=== PATIENT | male | born 1985 | race Caucasian/White ===

== ENCOUNTER → 2019-07-15 09:02 | Outpatient (BNVA) | payer OTHER, SELFPAY | PROVIDERS: Family Provider Nurse Practitioner Family; PCP Nurse Practitioner Family; Visit Provider Nurse Practitioner Family | DX: M25.562 Pain in left knee (principal); M79.89 Other specified soft tissue disorders | CPT/HCPCS: 73562 ==

== ENCOUNTER → 2019-08-15 10:42 | Outpatient (BNVA) | payer OTHER, SELFPAY | PROVIDERS: Family Provider Nurse Practitioner Family; PCP Nurse Practitioner Family; Visit Provider Family Medicine | DX: J20.8 Acute bronchitis due to other specified organisms (principal) | CPT/HCPCS: 87081; 87880 ==

== ENCOUNTER → 2019-12-06 15:14 | Outpatient (BNVA) | payer OTHER, SELFPAY | PROVIDERS: Family Provider Nurse Practitioner Family; PCP Nurse Practitioner Family; Visit Provider Emergency Medicine | DX: R68.89 Other general symptoms and signs (principal); R11.0 Nausea; K52.9 Noninfective gastroenteritis and colitis, unspecified | CPT/HCPCS: 87400; 87635 ==

== ENCOUNTER → 2020-02-10 13:41 | Outpatient (BNVA) | payer OTHER, SELFPAY | PROVIDERS: Family Provider Nurse Practitioner Family; PCP Nurse Practitioner Family; Visit Provider Nurse Practitioner | DX: Z20.828 Contact with and (suspected) exposure to other viral communicable diseases (principal) | CPT/HCPCS: 87635 ==

== ENCOUNTER → 2020-02-13 15:56 | Outpatient (BNVA) | payer OTHER, SELFPAY | PROVIDERS: Family Provider Nurse Practitioner Family; PCP Nurse Practitioner Family; Visit Provider Family Medicine | DX: R73.03 Prediabetes (principal); I10 Essential (primary) hypertension; Z13.220 Encounter for screening for lipoid disorders; Z13.6 Encounter for screening for cardiovascular disorders | CPT/HCPCS: 80053; 80061; 83036; 83721 ==

== ENCOUNTER → 2020-02-18 14:33 | Outpatient (BNVA) | payer OTHER, SELFPAY | PROVIDERS: Family Provider Nurse Practitioner Family; PCP Nurse Practitioner Family; Visit Provider Emergency Medicine | DX: R19.7 Diarrhea, unspecified (principal); R10.9 Unspecified abdominal pain | CPT/HCPCS: 80053; 82270; 82274; 83690; 85025; 87493; 87506 ==

== ENCOUNTER → 2020-04-12 10:32 | Outpatient (BNVA) | payer OTHER, SELFPAY | PROVIDERS: Family Provider Nurse Practitioner Family; PCP Nurse Practitioner Family; Visit Provider Emergency Medicine | DX: Z20.828 Contact with and (suspected) exposure to other viral communicable diseases (principal); R68.89 Other general symptoms and signs; R11.0 Nausea | CPT/HCPCS: 87400; 87635 ==

== ENCOUNTER → 2020-04-22 18:13 | Outpatient (BNVA) | payer OTHER, SELFPAY | PROVIDERS: Family Provider Nurse Practitioner Family; PCP Nurse Practitioner Family; Visit Provider Nurse Practitioner Family | DX: R68.89 Other general symptoms and signs (principal) | CPT/HCPCS: 87635 ==

== ENCOUNTER → 2020-04-25 15:14 | Outpatient (BNVA) | payer OTHER, SELFPAY | PROVIDERS: Family Provider Nurse Practitioner Family; PCP Nurse Practitioner Family; Visit Provider Emergency Medicine | DX: R68.89 Other general symptoms and signs (principal); Z20.828 Contact with and (suspected) exposure to other viral communicable diseases | CPT/HCPCS: 71046; 87400; 87635 ==

== ENCOUNTER 2020-09-17 10:53 | Outpatient (CLI) | payer OTHER, SELFPAY ==
--- NOTE | 2020-09-17 10:59 | MR_ITS ---
WS: [id number] MRI LEFT KNEE HISTORY: M25.562 - Pain in left knee COMPARISON: Radiograph 07/15/2019 Anterior cruciate ligament: Intact. Posterior cruciate ligament: Intact. Medial collateral ligament: Intact. Posterior lateral corner structures: Intact. Medial menisci: Intact. Normal signal, size and shape. Lateral meniscus: Intact. Normal signal, size and shape. Extensor mechanism: Distal quadriceps tendon and patellar tendons are intact. Fluid and soft tissue: No significant joint effusion. No Zavala's cyst. There is a small fluid collect ion measuring 5 mm associated with the extensor digitorum longus muscle and tendon just superior to t he fibular head. This could be a very tiny ganglion. Osseous and articular structures: Patellofemoral compartment: Normal. Medial compartment: No significant narrowing of the medial compartment with loss of the joint space. Abnormal signal involving the femoral condyle. Variable signal in the subchondral location. Serpigino us line is low-attenuation surrounding the posterior lesion in the femoral condyle which measures 18 mm. Additional 15 mm area of decreased signal towards the anterior femoral condyle. No loose body or fragment. Lateral compartment: No definite lesions are identified within the bone. There is no marrow edema. No fragmentation or loss of joint space. There is an additional irregular shaped lesion in the tibial metaphysis with serpiginous borders ced uring 2.4 x 1.5 cm. MR/MR knee LT wo con* [id number] IMPRESSION: 1. Focal areas of osteonecrosis involving the medial femoral condyle and the t ibial metaphysis. No loose bodies. 2. No joint effusion. 3. Small cystic collection associated with the extensor digitorum longus muscl e and tendon adjacent to the fibular head. This could potentially be a very sma ll ganglion or distended bursa.
== END 2020-09-17 10:54 | disposition home or self-care (01) ==
PROVIDERS: PCP Nurse Practitioner Family; Visit Provider Nurse Practitioner Family
DX: M25.562 Pain in left knee (principal); M87.862 Other osteonecrosis, left tibia
CPT/HCPCS: 73721

== ENCOUNTER → 2020-09-30 09:38 | Outpatient (BNVA) | payer OTHER, SELFPAY | PROVIDERS: PCP Nurse Practitioner Family; Visit Provider Orthopaedic Surgery | DX: M25.562 Pain in left knee (principal); G89.29 Other chronic pain | CPT/HCPCS: 73560; 73565 ==

== ENCOUNTER 2020-10-03 06:00 | Outpatient (RCR) | payer OTHER, SELFPAY | END 2020-10-21 23:59 | disposition home or self-care (01) | LOC: MPT 06:00 | PROVIDERS: PCP Nurse Practitioner Family; Referring Provider Orthopaedic Surgery; Visit Provider Orthopaedic Surgery | DX: M25.562 Pain in left knee (principal) | CPT/HCPCS: 97110; 97140; 97161 ==

== ENCOUNTER → 2020-10-16 14:56 | Outpatient (BNVA) | payer OTHER, SELFPAY | PROVIDERS: PCP Family Medicine; Visit Provider Family Medicine | DX: J02.0 Streptococcal pharyngitis (principal); I10 Essential (primary) hypertension; E11.9 Type 2 diabetes mellitus without complications; M25.562 Pain in left knee; G89.29 Other chronic pain | CPT/HCPCS: 87880 ==

== ENCOUNTER 2020-10-22 06:00 | Outpatient (RCR) | payer OTHER, SELFPAY | END 2020-11-20 23:59 | disposition home or self-care (01) | LOC: MPT 06:00 | PROVIDERS: PCP Family Medicine; Referring Provider Orthopaedic Surgery; Visit Provider Orthopaedic Surgery | DX: M25.562 Pain in left knee (principal) | CPT/HCPCS: 97140 ==

== ENCOUNTER → 2021-06-10 15:45 | Outpatient (BNVA) | payer SELFPAY | PROVIDERS: PCP Family Medicine; Visit Provider Family Medicine | DX: I10 Essential (primary) hypertension (principal); Z13.220 Encounter for screening for lipoid disorders; Z13.6 Encounter for screening for cardiovascular disorders; E11.9 Type 2 diabetes mellitus without complications; K21.9 Gastro-esophageal reflux disease without esophagitis | CPT/HCPCS: 80053; 80061; 83036 ==

== ENCOUNTER 2021-09-19 17:41 | Emergency (ER) | payer SELFPAY ==
[2021-09-19 17:51] VITALS: BP 130/79; PULSE 83; RESP 16; TEMP 36.6; O2SAT 97; BMI 31.2
--- NOTE | 2021-09-19 17:55 | CTR_ITS ---
PROCEDURE INFORMATION: Exam: CT Abdomen And Pelvis With Contrast Exam date and time: 09/19/2021 6:26 PM Age: 35 years old Clinical indication: Abdominal pain; Localized; Right lower quadrant (rlq); Patient HX: C/O rlq pain w nausea x 2-3 weeks; Additional info: Rlq abd pain TECHNIQUE: Imaging protocol: Computed tomography of the abdomen and pelvis with contrast. Radiation optimization: All CT scans at this facility use at least one of these dose optimization techniques: automated exposure control; mA and/or kV adjustment per patient size (includes targeted exams where dose is matched to clinical indication); or iterative reconstruction. Contrast material: OMNI 300; Contrast volume: 95 ml; Contrast route: INTRAVENOUS (IV); COMPARISON: CR XR chest 2V* [id number] 04/25/2020 3:24 PM RADIATION DOSE METRICS: Total DLP (mGy-cm): 1926.14 FINDINGS: Lungs: Lung bases are clear. Liver: There is a diffuse decrease in hepatic parenchymal density, consistent with mild fatty infiltration. There is no focal abnormality within the liver. There is mild enlargement of the liver. Liver measures 20 cm in height. Gallbladder and bile ducts: The gallbladder is normal. Pancreas: The pancreas is normal. Spleen: The spleen is normal. Adrenal glands: The adrenal glands are normal. Kidneys and ureters: The kidneys are normal. There is no evidence of hydronephrosis. There is no stone along the course of either ureter. Stomach and bowel: There is no evidence of colitis/diverticulitis. There is no evidence of intestinal obstruction. Appendix: A normal appendix is identified. Intraperitoneal space: There is no evidence of free intraperitoneal fluid. There is a circumscribed area of haziness in the mid mesentery which also contains some prominent mesenteric lymph nodes. These findings may represent some mesenteric panniculitis or sclerosing mesenteritis. Correlation with clinical findings is suggested. Vasculature: The aorta is normal. Lymph nodes: There is no retroperitoneal adenopathy. Urinary bladder: Unremarkable as visualized. Reproductive: Unremarkable as visualized. Bones/joints: Unremarkable. No acute fracture. Soft tissues: Unremarkable. CT/CT abdomen pelvis w con* [id number] IMPRESSION: 1. Mesenteric panniculitis. 2. Fatty liver and mild hepatomegaly.
--- NOTE | 2021-09-19 18:01 | W.ED.GENADLT ---
HPI - General Adult General: Chief complaint: Abdominal Pain Stated complaint: needs scanning Time Seen by Provider: 09/19/21 17:55 History of Present Illness: Patient is a 35-year-old male with hx of HTN presenting to the emergency room with complaints of right lower quadrant pain x2 to 3 weeks. Patient tells me that he initially bent down and noticed pain in the right lower quadrant. Patient denies any bulges or hernia. Since then, patient reports pain has been constant and worse with p.o. intake. Patient said that he experienced pain about an hour after p.o. intake. Patient reports nausea but denies vomiting fever or chills. Patient report that he had an ultrasound of the groin earlier today that was unremarkable. Patient was told to come to the emergency room for evaluation of right lower quadrant pain. Patient denies any prior abdominal surgery, no history of renal colic, urinary complaints or new penile discharge. Patient denies any chest pain, shortness breath, palpitation, diarrhea, melena/hematochezia. Onset: 3 weeks ago Duration:3 weeks Location:home Severity:mild/moderate Associated symptoms: Reports nausea; Deny chest pain, dyspnea, rash, palpitations or vomiting Review of Systems Const: Denies: fever(s) or chills Eyes: Denies: change in vision ENMT: Denies: mouth pain Card: Denies: chest pain or palpitations Resp: Denies: dyspnea or non-productive cough GI: Reports: abdominal pain (+RLQ abd pain) and nausea; Denies: vomiting or diarrhea : Denies: dysuria Musc: Denies: extremity pain Skin/Breast: Denies: rash or new lesions Neuro: Denies: weakness in extremities Psych: Reports: other (Normal mood) Rachid/Lymph: Denies: easy bruising PFS ED PFSH: Medical History (Updated 09/19/21 @ 19:23 by Raul Webb MD) Essential hypertension Surgical History H/O brain surgery H/O eye surgery S/P carpal tunnel release Family History Other Cancer Dementia Diabetes Hyperlipidemia Hypertension Psychiatric illness Stroke Suicide Social History Quit status (tobacco): not considering quitting Alcohol intake: never History of recent travel: No Physical Exam Const: COMMON NORMALS: alert HENMT: COMMON NORMALS: atraumatic HEAD & SCALP: atraumatic MOUTH: moist mucous membranes not abnormal Eye: COMMON NORMALS: EOMs intact bilaterally and conjunctivae normal CONJUNCTIVA: Yes conjunctivae normal Neck/C-Spine: COMMON NORMALS: full ROM and supple Resp: COMMON NORMALS: normal respiratory effort and clear to auscultation bilaterally AUSCULTATION: clear to auscultation bilaterally Cardio: COMMON NORMALS: regular rate RATE: regular rate GI: COMMON NORMALS: Soft to palpation PALPATION: Yes Soft to palpation OTHER: +Mild focal RLQ TTP. NO guarding rebound, guarding, rigidity. No CVA tenderness to percussion. Neg Diaz/Neg McBurney's point tenderness, no suprabupic tenderness to palpation. Extremity: COMMON NORMALS: full ROM Neuro: SENSORIUM/ORIENTATION: Yes alert MOTOR EXAM: No Abnormal motor strength present and Other motor observations present (no focal motor deficits) Psych: COMMON NORMALS: speech normal SPEECH: Yes normal speech MOOD & AFFECT: Yes euthymic mood Course Vital Signs: Vital signs: Vital Signs Temperature 97.8 F 09/19/21 17:51 Pulse Rate 83 09/19/21 17:51 Respiratory Rate 16 09/19/21 19:38 Blood Pressure 130/79 09/19/21 17:51 Pulse Oximetry 97 09/19/21 17:51 [facility] - General Adult Medical Decision Making 35-year-old male with history hypertension presenting to the emergency room with 2 to 3 weeks of right lower quadrant abdominal pain. Exam, patient is afebrile, hemodynamically stable. Has mild right lower quadrant tenderness palpation. No McBurney's point tenderness, involuntary guarding or rebound tenderness. He has no acute distress. Laboratory work-up showed no leukocytosis. UA negative for any acute findings. CT abdomen pelvis showed mesenteric panniculitis. Patient has a white count 8.5K and is currently afebrile. I do not suspect superimposed bacterial causes of panniculitis. Patient is given follow-up with general surgery for further valuation. We will treat conservatively with anti-inflammatory medication for now. I have given patient follow up with our pillowcase cleaner to be seen by our outpatient general surgery for further evaluation of abdominal pain secondary to mesenteric panniculitis. Patient aware of a call from our pillowcase cleaner to schedule for appointment(s) and verbalizes understanding of the importance of following up. Patient tells me that he will follow-up with his primary care provider on Wednesday for reassessment. Rx tylenol PRN abd pain, maalox/pepcid PRN dyspepsia, and zofran PRN nausea/vomiting Disposition: Discharge. Patient counseled regarding diagnostic impression, treatment plan. Patient given ED strict return precautions to return for continuation, worsening, or development of new symptoms. Instructed to f/u w/ PCP regarding symptoms today. Patient verbalized understanding. Lab Data : 09/19/21 18:11 09/19/21 18:11 Radiology Impressions Abdomen/Pelvis CT 09/19/21 17:55 IMPRESSION: 1. Mesenteric panniculitis. 2. Fatty liver and mild hepatomegaly. Laboratory Results WBC 8.5 10^3/uL (4.0-10.0) 09/19/21 18:11 RBC 4.79 10^6/uL (4.1-5.3) 09/19/21 18:11 Hgb 14.4 g/dL (11.7-16.6) 09/19/21 18:11 Hct 39.2 % (42.0-52.0) L 09/19/21 18:11 MCV 81.8 fl (80-94) 09/19/21 18:11 MCH 30.1 pg (28.0-34.0) 09/19/21 18:11 MCHC 36.7 g/dL (30.0-36.0) H 09/19/21 18:11 RDW 13.3 % (12.1-15.1) 09/19/21 18:11 Plt Count 226 10^3/cmm (130-400) 09/19/21 18:11 MPV 10.4 fL (7.4-10.4) 09/19/21 18:11 Neut % (Auto) 59.0 % 09/19/21 18:11 Lymph % (Auto) 28.1 % 09/19/21 18:11 Wirt % (Auto) 8.2 % 09/19/21 18:11 Eos % (Auto) 3.8 % 09/19/21 18:11 Baso % (Auto) 0.5 % 09/19/21 18:11 Neut # (Auto) 5.04 10^3/uL (1.8-7.7) 09/19/21 18:11 Lymph # (Auto) 2.4 10^3/uL (0.8-4.8) 09/19/21 18:11 Wirt # (Auto) 0.7 10^3/uL (0.2-0.9) 09/19/21 18:11 Eos # (Auto) 0.3 10^3/uL (0.0-0.8) 09/19/21 18:11 Baso # (Auto) 0.0 10^3/uL (0.0-0.1) 09/19/21 18:11 Nucleated RBC % (auto) 0 % 09/19/21 18:11 Nucleated RBCs # 0.0 /100WBC 09/19/21 18:11 Sodium 139 mmol/L (136-145) 09/19/21 18:11 Potassium 3.0 mmol/L (3.5-5.1) L 09/19/21 18:11 Chloride 101 mmol/L (98-107) 09/19/21 18:11 Carbon Dioxide 26 mmol/L (22-29) 09/19/21 18:11 Anion Gap 15.0 (5-19) 09/19/21 18:11 BUN 15 mg/dL (6-20) 09/19/21 18:11 Creatinine 0.7 mg/dL (0.7-1.2) 09/19/21 18:11 GFR Calculation 127.6 mL/min (90-130) 09/19/21 18:11 Glucose 99 mg/dL (65-115) 09/19/21 18:11 Calculated Osmolality 289 mOsm/kg (285-295) 09/19/21 18:11 Lactate 1.4 mmol/L (0.5-2.2) 09/19/21 18:11 Calcium 8.9 mg/dL (8.5-10.5) 09/19/21 18:11 Total Bilirubin 0.6 mg/dL (0.15-1.2) 09/19/21 18:11 AST 27 U/L (0-40) 09/19/21 18:11 ALT 56 U/L (0-41) H 09/19/21 18:11 Alkaline Phosphatase 92 IU/L (40-130) 09/19/21 18:11 Total Protein 7.0 g/dL (6.6-8.7) 09/19/21 18:11 Albumin 4.1 g/dL (3.5-5.2) 09/19/21 18:11 Globulin 2.9 g/dL (1.3-4.6) 09/19/21 18:11 Lipase 68 U/L (13-60) H 09/19/21 18:11 Urine Color Yellow (Yellow) 09/19/21 18:48 Urine Appearance Clear (CLEAR) 09/19/21 18:48 Urine pH 7 (5-7) 09/19/21 18:48 Ur Specific [place] 1.010 (1.005-1.030) 09/19/21 18:48 Urine Protein Neg (Negative) 09/19/21 18:48 Urine Glucose (UA) Norm (Normal) 09/19/21 18:48 Urine Ketones Negative (Negative) 09/19/21 18:48 Urine Blood Trace (Negative) H 09/19/21 18:48 Urine Nitrate Negative (Negative) 09/19/21 18:48 Urine Bilirubin Neg (Negative) 09/19/21 18:48 Urine Urobilinogen 1 mg/dL (Negative) H 09/19/21 18:48 Ur Leukocyte Esterase Negative (Negative) 09/19/21 18:48 Urine RBC 0-4 /hpf (0-2) H 09/19/21 18:48 Urine WBC 0-4 /hpf (0-5) H 09/19/21 18:48 Ur Squamous Epith Cells None /hpf (0-5) 09/19/21 18:48 Amorphous Sediment Not Reportable 09/19/21 18:48 Urine Bacteria None /hpf (NONE) 09/19/21 18:48 Urine Mucus 1+ /hpf 09/19/21 18:48 Imaging Data Other Imaging: Radiologist's impression: [address] [address] [address] Scan Report Signed Patient: Ger Carlton Unit #: [id number] : 1985 Age/Sex: 35 / M ADM Date: 09/19/21 Loc: ER Room/Bed: Attending Dr: Ordering Provider/Ordering MD: Raul Webb MD Date of Service: 09/19/21 Procedure(s): CT abdomen pelvis w con* [id number] Accession Number(s): [id number] Report Number: [id number] PROCEDURE INFORMATION: Exam: CT Abdomen And Pelvis With Contrast Exam date and time: 09/19/2021 6:26 PM Age: 35 years old Clinical indication: Abdominal pain; Localized; Right lower quadrant (rlq); Patient HX: C/O rlq pain w nausea x 2-3 weeks; Additional info: Rlq abd pain TECHNIQUE: Imaging protocol: Computed tomography of the abdomen and pelvis with contrast. Radiation optimization: All CT scans at this facility use at least one of these dose optimization techniques: automated exposure control; mA and/or kV adjustment per patient size (includes targeted exams where dose is matched to clinical indication); or iterative reconstruction. Contrast material: OMNI 300; Contrast volume: 95 ml; Contrast route: INTRAVENOUS (IV);? COMPARISON: CR XR chest 2V* [id number] 04/25/2020 3:24 PM RADIATION DOSE METRICS: Total DLP (mGy-cm): 1926.14 FINDINGS: Lungs: Lung bases are clear. Liver: There is a diffuse decrease in hepatic parenchymal density, consistent with mild fatty infiltration. There is no focal abnormality within the liver. There is mild enlargement of the liver. Liver measures 20 cm in height. Gallbladder and bile ducts: The gallbladder is normal. Pancreas: The pancreas is normal. Spleen: The spleen is normal. Adrenal glands: The adrenal glands are normal. Kidneys and ureters: The kidneys are normal. There is no evidence of hydronephrosis. There is no stone along the course of either ureter. Stomach and bowel: There is no evidence of colitis/diverticulitis. There is no evidence of intestinal obstruction. Appendix: A normal appendix is identified. Intraperitoneal space: There is no evidence of free intraperitoneal fluid. There is a circumscribed area of haziness in the mid mesentery which also contains some prominent mesenteric lymph nodes. These findings may represent some mesenteric panniculitis or sclerosing mesenteritis. Correlation with clinical findings is suggested. Vasculature: The aorta is normal. Lymph nodes: There is no retroperitoneal adenopathy. Urinary bladder: Unremarkable as visualized. Reproductive: Unremarkable as visualized. Bones/joints: Unremarkable. No acute fracture. Soft tissues: Unremarkable. CT/CT abdomen pelvis w con* [id number] IMPRESSION: 1. Mesenteric panniculitis. 2. Fatty liver and mild hepatomegaly. ? Dictated By: Brendan Hernandez Signed By: Brendan Hernandez Signed Date/Time: 09/19/211841 DD/ 25 Discharge Plan Discharge Patient Disposition: Home Clinical Impression: Abdominal pain, Nausea, Mesenteric panniculitis Condition: Stable Prescriptions: New acetaminophen 500 mg tablet 500 mg PO Q6H PRN (Reason: pain) 5 Days Qty: 20 0RF Pepcid 20 mg tablet 20 mg PO BID PRN (Reason: abdominal pain) 10 Days Qty: 20 0RF ondansetron 4 mg tablet,disintegrating 4 mg PO TID PRN (Reason: nausea and vomiting) 4 Days Qty: 12 0RF Maalox Advanced 1,000-60 mg tablet,chewable 1 tab PO TID PRN (Reason: abdominal pain) 7 Days Qty: 21 0RF No Action naproxen [Naprosyn] 500 mg tablet 500 mg PO BID Qty: 30 0RF oseltamivir [Tamiflu] 75 mg capsule 75 mg PO BID 5 Days Qty: 10 0RF Excedrin Tension Headache 500-65 mg tablet 1 tab PO Q6H PRN (Reason: pain) Qty: 30 0RF pantoprazole 20 mg tablet,delayed release (DR/EC) 20 mg PO DAILY 90 Days Qty: 90 3RF lisinopril 20 mg tablet 20 mg PO DAILY 90 Days Qty: 90 3RF hydrochlorothiazide 25 mg tablet 25 mg PO DAILY 90 Days Qty: 90 3RF Discharge Orders: Discharge ED (Routine); Ordered 09/19/21 Ordered By: Raul Webb Discharge Diet: Advance as tolerated Discharge Activity: Increase activity as tolerated Patient Instructions: Abdominal Pain (ED) Activity Restrictions/Additional Instructions: Please come back if you have any worsening abdominal pain, fever or chills, nausea or vomiting, diarrhea, blood in the stool, inability hold down liquid or solids, or any new concerning complaints. Our pillowcase cleaner will have you follow-up with general surgery in the next few days for management of mesenteric panniculitis. You would be expected to have a phone call with our pillowcase cleaner who will put you on the schedule. You can expect a call from us in the next 2-3 days. If you don't hear from us, call us back in the emergency room at [phone]. Stand Alone Forms: Work/School Release Coding Level of Care Code ED [employer] Fwd Exam Comprehensive
[2021-09-19] MEDS: sodium chloride 0.9% 1,000 ML 999 ML IV (18:10)
[2021-09-19] MEDS: famotidine 20 mg/2 mL INJ IVP (18:10)
[2021-09-19] MEDS: ondansetron 2 mg/ML SDV 2 mL 4 MG IVP (18:11)
[2021-09-19 18:20] LABS: Basophils % 0.5 %; Eosinophils # 0.3 10^3/uL (0.0-0.8); Eosinophils % 3.8 %; Hematocrit 39.2 % (42.0-52.0); Hemoglobin 14.4 g/dL (11.7-16.6); Lymphocytes # 2.4 10^3/uL (0.8-4.8); Lymphocytes % 28.1 %; Mean Corpuscular HGB Conc 36.7 g/dL (30.0-36.0); Mean Corpuscular Hemoglobin 30.1 pg (28.0-34.0); Mean Corpuscular Volume 81.8 fl (80-94); Mean Platelet Volume 10.4 fL (7.4-10.4); Monocytes # 0.7 10^3/uL (0.2-0.9); Monocytes % 8.2 %; Neutrophils # 5.04 10^3/uL (1.8-7.7); Nucleated Red Blood Cells % 0 %; Platelet Count 226 10^3/cmm (130-400); Red Blood Count 4.79 10^6/uL (4.1-5.3); Red Cell Distribution Width 13.3 % (12.1-15.1); White Blood Count 8.5 10^3/uL (4.0-10.0)
[2021-09-19] MEDS: iohexol 300 mg/mL 100 mL Btl IV (18:25)
[2021-09-19 18:39] LABS: Alanine Aminotransferase 56 U/L (0-41); Albumin Level 4.1 g/dL (3.5-5.2); Alkaline Phosphatase 92 IU/L (40-130); Aspartate Amino Transferase 27 U/L (0-40); Blood Urea Nitrogen 15 mg/dL (6-20); Calcium 8.9 mg/dL (8.5-10.5); Carbon Dioxide 26 mmol/L (22-29); Chloride 101 mmol/L (98-107); Globulin 2.9 g/dL (1.3-4.6); Glomerular Filtration Rate 127.6 mL/min (90-130); Glucose 99 mg/dL (65-115); Lipase 68 U/L (13-60); Osmolality Calculated 289 mOsm/kg (285-295); Sodium 139 mmol/L (136-145); Total Bilirubin 0.6 mg/dL (0.15-1.2)
[2021-09-19 18:41] LABS: Lactate (Lactic Acid level) 1.4 mmol/L (0.5-2.2)
--- NOTE | 2021-09-19 19:12 | PC.NURSE ---
190 assumed pt care from Perry BIRD
[2021-09-19 19:18] LABS: Urine Appearance Clear (CLEAR); Urine Color Yellow (Yellow); pH Urine 7 (5-7)
[2021-09-19 19:19] LABS: Add Urine Microscopic? YES; Bilirubin Urine Neg (Negative); Blood Urine Trace (Negative); Glucose Urine UA Norm (Normal); Ketones Urine Negative (Negative); Leukocyte Esterase Urine Negative (Negative); Nitrate Urine Negative (Negative); Protein Urine Neg (Negative); Urobilinogen Urine 1 mg/dL (Negative)
[2021-09-19 19:21] LABS: Add Urine Culture? No; Mucus Urine 1+ /hpf; RBC Urine 0-4 /hpf (0-2); WBC Urine 0-4 /hpf (0-5)
[2021-09-19 19:38] VITALS: RESP 16
--- NOTE | 2021-09-25 09:28 | DCPLANNER ---
Addendum entered by Tracey Thornton 10/09/21 12:37: Patient had a follow up appointment scheduled with Ernie Hewitt at general surgery - patient did attend appointment. Original Note: order processing manager had message to schedule a follow up appointment for patient with general surgery. order processing manager sent patients information to the front office staff at general surgery. Patients information will be printed and reviewed. Clinic will call patient with appointment information.
== END 2021-09-19 19:38 | disposition home or self-care (01) ==
PROVIDERS: Emergency Provider Emergency Medicine
DX: K65.4 Sclerosing mesenteritis (principal); R11.0 Nausea
CPT/HCPCS: 74177; 80053; 81001; 83605; 83690; 85025; 96361; 96374; 96375; 99284; J2405; J3490; J7030; Q9967

== ENCOUNTER 2022-01-14 22:50 | Emergency (ER) | payer SELFPAY ==
[2022-01-14 22:55] VITALS: BP 108/85; PULSE 117; RESP 22; TEMP 37.7; O2SAT 97; BMI 30.8
--- NOTE | 2022-01-14 23:11 | XRR_ITS ---
PROCEDURE INFORMATION: Exam: XR Chest Exam date and time: 01/15/2022 12:15 AM Age: 36 years old Clinical indication: Fever and shortness of breath; Patient HX: SOB with fever. Covid + TECHNIQUE: Imaging protocol: Radiologic exam of the chest. Views: 1 view. COMPARISON: CR XR chest 2V* [id number] 04/25/2020 3:24 PM FINDINGS: Lungs: Unremarkable. No consolidation. Pleural spaces: Unremarkable. No pleural effusion. No pneumothorax. Heart/Mediastinum: Unremarkable. No cardiomegaly. Bones/joints: Unremarkable. XR/XR chest 1V portable [id number] IMPRESSION: No acute findings.
--- NOTE | 2022-01-14 23:22 | ED_ITS ---
HPI - SOB/Dyspnea General: Chief Complaint: Shortness of Breath/Dyspnea Stated Complaint: covid, fever, sob Time Seen by Provider: 01/14/22 22:53 Source: patient and EMS Mode of arrival: EMS Limitations: no limitations History of Present Illness: HPI Narrative: 36-year-old male states he was diagnosed with COVID this morning states throughout the day has been having chills body aches and fatigue. He states had extreme weakness he was febrile with EMS with slightly low blood pressure and tachycardia. He denies any vomiting diarrhea has had some mild dyspnea with a slight cough. He denies any worsening improving factors. Associated symptoms: Reports fever(s); Deny abdominal pain, chest pain, nausea or vomiting Review of Systems Const: Reports: fever(s), chills, body aches and fatigue Eyes: Denies: blurry vision or eye discomfort ENMT: Denies: throat pain or dental pain Card: Denies: chest pain Resp: Reports: non-productive cough GI: Denies: abdominal pain, nausea, vomiting or diarrhea : Denies: dysuria Musc: Denies: neck pain or back pain Skin/Breast: Denies: rash Neuro: Denies: headache(s) Psych: Denies: depression Rachid/Lymph: Denies: easy bruising All/Imm: Denies: urticaria PFSH ED PFSH: Medical History (Updated 01/15/22 @ 01:51 by Francine Casarez MD) Essential hypertension Surgical History H/O brain surgery H/O eye surgery S/P carpal tunnel release Family History Other Cancer Dementia Diabetes Hyperlipidemia Hypertension Psychiatric illness Stroke Suicide Social History Smoking and tobacco status: former smoker Quit status (tobacco): has quit using tobacco Alcohol intake: never History of recent travel: No Physical Exam Const: COMMON NORMALS: no acute distress, patient oriented x3 and healthy appearing HENMT: COMMON NORMALS: normocephalic and atraumatic HEAD & SCALP: normocephalic and atraumatic Eye: COMMON NORMALS: Equal, round and reactive pupils present and EOMs intact bilaterally PUPIL: Yes Equal, round and reactive pupils present Neck/C-Spine: COMMON NORMALS: full ROM and supple Chest: COMMONS NORMALS: normal inspection of the chest and normal palpation of entire chest wall Resp: COMMON NORMALS: normal respiratory effort, No retractions, No use of accessory muscles and clear to auscultation bilaterally AUSCULTATION: clear to auscultation bilaterally Cardio: COMMON NORMALS: regular rhythm and No murmurs present (Cardio) RATE: tachycardic RHYTHM: regular rhythm GI: COMMON NORMALS: Normal to inspection, nondistended, normoactive bowel sounds present, Soft to palpation, non-tender and no masses PALPATION: Yes Soft to palpation Extremity: COMMON NORMALS: normal to inspection and full ROM Neuro: COMMON NORMALS: patient oriented x3, moves all extremities and no focal motor deficits Psych: COMMON NORMALS: mental status grossly normal, Normal thought process present and cooperative THOUGHT PROCESS: Normal thought process present Skin: COMMON NORMALS: no rashes or lesions noted and no wounds GENERAL SKIN EXAM: no rashes or lesions noted Course Vital Signs: Vital signs: Vital Signs Temperature 99.8 F H 01/14/22 22:55 Pulse Rate 117 H 01/14/22 22:55 Respiratory Rate 22 H 01/14/22 22:55 Blood Pressure 108/85 01/14/22 22:55 Pulse Oximetry 97 01/14/22 22:55 Oxygen Delivery Me thod 01/14/22 22:55 MDM - SOB/Dyspnea Medical Decision Making Patient presents here with COVID his heart rate and blood pressure is improved after fluids patient's blood work here is all normal he is stable for discharge he is to follow-up PCP and return if worsening. Lab Data : 01/14/22 23:45 01/14/22 23:45 Labs/Radiology: Radiology Impressions Chest X-Ray 01/14/22 23:11 IMPRESSION: No acute findings. Laboratory Results WBC 9.5 10^3/uL (4.0-10.0) 01/14/22 23:45 RBC 4.87 10^6/uL (4.1-5.3) 01/14/22 23:45 Hgb 14.5 g/dL (11.7-16.6) 01/14/22 23:45 Hct 40.2 % (42.0-52.0) L 01/14/22 23:45 MCV 82.5 fl (80-94) 01/14/22 23:45 MCH 29.8 pg (28.0-34.0) 01/14/22 23:45 MCHC 36.1 g/dL (30.0-36.0) H 01/14/22 23:45 RDW 12.9 % (12.1-15.1) 01/14/22 23:45 Plt Count 166 10^3/cmm (130-400) 01/14/22 23:45 MPV 10.7 fL (7.4-10.4) H 01/14/22 23:45 Neut % (Auto) 83.9 % 01/14/22 23:45 Lymph % (Auto) 5.8 % 01/14/22 23:45 [place] % (Auto) 8.5 % 01/14/22 23:45 Eos % (Auto) 1.1 % 01/14/22 23:45 Baso % (Auto) 0.3 % 01/14/22 23:45 Neut # (Auto) 7.97 10^3/uL (1.8-7.7) H 01/14/22 23:45 Lymph # (Auto) 0.6 10^3/uL (0.8-4.8) L 01/14/22 23:45 [place] # (Auto) 0.8 10^3/uL (0.2-0.9) 01/14/22 23:45 Eos # (Auto) 0.1 10^3/uL (0.0-0.8) 01/14/22 23:45 Baso # (Auto) 0.0 10^3/uL (0.0-0.1) 01/14/22 23:45 Nucleated RBC % (auto) 0 % 01/14/22 23:45 Nucleated RBCs # 0.0 /100WBC 01/14/22 23:45 D-Dimer 0.30 ug/mIFEU (0-0.59) 01/15/22 00:26 Sodium 137 mmol/L (136-145) 01/14/22 23:45 Potassium 3.5 mmol/L (3.5-5.1) 01/14/22 23:45 Chloride 100 mmol/L (98-107) 01/14/22 23:45 Carbon Dioxide 24 mmol/L (22-29) 01/14/22 23:45 Anion Gap 16.5 (5-19) 01/14/22 23:45 BUN 17 mg/dL (6-20) 01/14/22 23:45 Creatinine 1.1 mg/dL (0.7-1.2) 01/14/22 23:45 GFR Calculation Not Reportable 01/14/22 23:45 Glucose 114 mg/dL (65-115) 01/14/22 23:45 Calculated Osmolality 286 mOsm/kg (285-295) 01/14/22 23:45 Lactic Acid 2.1 mmol/L (0.5-2.2) 01/14/22 23:45 Calcium 8.3 mg/dL (8.5-10.5) L 01/14/22 23:45 Total Bilirubin 0.6 mg/dL (0.15-1.2) 01/14/22 23:45 AST 24 U/L (0-40) 01/14/22 23:45 ALT 46 U/L (0-41) H 01/14/22 23:45 Alkaline Phosphatase 72 U/L (40-130) 01/14/22 23:45 Total Protein 6.9 g/dL (6.6-8.7) 01/14/22 23:45 Albumin 4.1 g/dL (3.5-5.2) 01/14/22 23:45 Globulin 2.8 g/dL (1.3-4.6) 01/14/22 23:45 Discharge Plan Discharge Patient Disposition: Home Clinical Impression: COVID-19 Condition: Stable Prescriptions: No Action naproxen [Naprosyn] 500 mg tablet 500 mg PO BID Qty: 30 0RF oseltamivir [Tamiflu] 75 mg capsule 75 mg PO BID 5 Days Qty: 10 0RF Excedrin Tension Headache 500-65 mg tablet 1 tab PO Q6H PRN (Reason: pain) Qty: 30 0RF pantoprazole 20 mg tablet,delayed release (DR/EC) 20 mg PO DAILY 90 Days Qty: 90 3RF lisinopril 20 mg tablet 20 mg PO DAILY 90 Days Qty: 90 3RF hydrochlorothiazide 25 mg tablet 25 mg PO DAILY 90 Days Qty: 90 3RF Discharge Orders: Discharge ED (Routine); Ordered 01/15/22 Ordered By: Francine Casarez Discharge Diet: Advance as tolerated Discharge Activity: Resume usual activity Patient Instructions: COVID-19 (Coronavirus Disease 2019) (ED) Coding Level of Care Code ED Housekeeper Child Care for [facility] Fwd Exam Comprehensive
[2022-01-14] MEDS: dexamethasone 10 mg/mL INJ IVP (23:29)
[2022-01-14] MEDS: acetaminophen 500 mg Tablet 1000 MG PO (23:29)
[2022-01-14] MEDS: sodium chloride 0.9% 1,000 ML 999 ML IV (23:45)
[2022-01-15 00:08] LABS: Basophils % 0.3 %; Eosinophils # 0.1 10^3/uL (0.0-0.8); Eosinophils % 1.1 %; Hematocrit 40.2 % (42.0-52.0); Hemoglobin 14.5 g/dL (11.7-16.6); Lactic Sepsis W/Reflex 2.1 mmol/L (0.5-2.2); Lymphocytes # 0.6 10^3/uL (0.8-4.8); Lymphocytes % 5.8 %; Mean Corpuscular HGB Conc 36.1 g/dL (30.0-36.0); Mean Corpuscular Hemoglobin 29.8 pg (28.0-34.0); Mean Corpuscular Volume 82.5 fl (80-94); Mean Platelet Volume 10.7 fL (7.4-10.4); Monocytes # 0.8 10^3/uL (0.2-0.9); Monocytes % 8.5 %; Neutrophils # 7.97 10^3/uL (1.8-7.7); Neutrophils % 83.9 %; Nucleated Red Blood Cells % 0 %; Platelet Count 166 10^3/cmm (130-400); Red Blood Count 4.87 10^6/uL (4.1-5.3); Red Cell Distribution Width 12.9 % (12.1-15.1); White Blood Count 9.5 10^3/uL (4.0-10.0)
[2022-01-15 00:19] LABS: Albumin Level 4.1 g/dL (3.5-5.2); Alkaline Phosphatase 72 U/L (40-130); Anion Gap 16.5 (5-19); Aspartate Amino Transferase 24 U/L (0-40); Blood Urea Nitrogen 17 mg/dL (6-20); Carbon Dioxide 24 mmol/L (22-29); Chloride 100 mmol/L (98-107); Globulin 2.8 g/dL (1.3-4.6); Glucose 114 mg/dL (65-115); Osmolality Calculated 286 mOsm/kg (285-295); Potassium 3.5 mmol/L (3.5-5.1); Sodium 137 mmol/L (136-145); Total Bilirubin 0.6 mg/dL (0.15-1.2); Total Protein 6.9 g/dL (6.6-8.7)
[2022-01-15 01:35] LABS: Alanine Aminotransferase 46 U/L (0-41); Calcium 8.3 mg/dL (8.5-10.5); Reflex Lactate Order REFLEX LACTIC ORDERD
[2022-01-15 02:05] VITALS: BP 100/66; PULSE 94; RESP 16; O2SAT 95
[2022-01-15 02:11] VITALS: BP 100/66; PULSE 97; RESP 16; TEMP 37.7; O2SAT 98
[2022-01-15] MEDS: sodium chloride 0.9% 1,000 ML 999 ML IV (02:13)
== END 2022-01-15 02:14 | disposition home or self-care (01) ==
PROVIDERS: Emergency Provider Emergency Medicine
DX: U07.1 COVID-19 (principal); I10 Essential (primary) hypertension
CPT/HCPCS: 71045; 80053; 83605; 85025; 85378; 96361; 96374; 99284; J1100; J7030

== ENCOUNTER → 2022-07-15 10:36 | Outpatient (BNVA) | payer BC, SELFPAY | PROVIDERS: Visit Provider Family Medicine | DX: I10 Essential (primary) hypertension (principal); Z13.220 Encounter for screening for lipoid disorders; Z13.6 Encounter for screening for cardiovascular disorders; R73.03 Prediabetes | CPT/HCPCS: 80053; 80061; 83036 ==